=== PATIENT | female | born 1965 | race Caucasian/White ===

== ENCOUNTER 2021-07-24 08:43 | Emergency (ER) | payer OTHER, SELFPAY ==
[2021-07-24] VITALS (8 sets, daily range): BP systolic 131–176; BP diastolic 66–97; PULSE 60–85; RESP 17–18; TEMP 36.8; O2SAT 97–100; BMI 38.6
--- NOTE | 2021-07-24 09:02 | XR_ITS ---
FINAL REPORT CLINICAL HISTORY: pain FINDINGS: Three views of the right knee reveal no evidence of fracture or dislocation. The bony alignment is normal. There are moderate degenerative changes. A small joint effusion is present. There are presumed loose bodies posteriorly and in the lateral compartment. IMPRESSION: Moderate degenerative changes with loose bodies and a small joint effusion. Reviewed, Interpreted and Dictated by Alec Vanegas III, MD Transcribed by To Ruiz Authenticated by Alec Vanegas III, MD on 07/24/2021 10:53:[address] [facility]
--- NOTE | 2021-07-24 09:02 | CT_ITS ---
FINAL REPORT CLINICAL HISTORY: back pain with right sided sciatica, no injury FINDINGS: Axial imaging of the lumbar spine was obtained without contrast. Sagittal and coronal reformatted images were also obtained and reviewed.This study was performed with techniques to keep radiation doses as low as reasonably achievable (ALARA). Individualized dose reduction techniques using automated exposure control or adjustment of mA and/or kV according to the patient's size were employed. There is no fracture. There are mild degenerative changes. There is mild anterolisthesis of L3 on L4. L1-2: There is an annular bulge, facet arthropathy and vertebral osteophytes. There is moderate right and mild left neural foraminal narrowing. L2-3: There is an annular bulge, facet arthropathy and vertebral osteophytes. There is severe right and moderate left neural foraminal narrowing. L3-4: There is an annular bulge and facet arthropathy. There is severe right and moderate left neural foraminal narrowing. There is mild central canal stenosis with an AP thecal sac diameter of 9 mm. L4-5: There is an annular bulge, facet arthropathy and vertebral osteophytes. There is severe bilateral neural foraminal narrowing. L5-S1: There is an annular bulge and facet arthropathy. There is mild bilateral neural foraminal narrowing. IMPRESSION: Multilevel degenerative change with areas of neural foraminal narrowing and central canal stenosis as described. Reviewed, Interpreted and Dictated by Alec Vanegas III, MD Transcribed by To Ruiz Authenticated by Alec Vanegas III, MD on 07/24/2021 10:53:35 AM [facility]
--- NOTE | 2021-07-24 09:04 | [facility].EDGENADL ---
ED Disposition Clinical Impression: Sciatic leg pain Disposition: Home, Self-Care Condition on Discharge: Good Instructions: DI for Sciatica Prescriptions: Ibuprofen [Ibuprofen 800mg Tablet] 800 mg PO TIDP PRN #20 tab PRN Reason: Moderate Pain Transmission Status: Pending to [id number] methocarbamoL [Methocarbamol] 750 mg PO QID 7 Days #28 tab Transmission Status: Pending to [id number] Referrals: Lisa Kramer [Primary Care Provider] - Jayjay Carrizales MD [Staff Physician] - - Critical Care Critical Care Time: No Attestation: On , the high probability of a clinically significant, sudden or life threatening deterioration of the following system(s) required my full and direct attention, intervention and personal management. The time I documented below is in addition to time spent performing reported procedures but includes the following listed in this critical care notation. Medical Decision Making - Medical Records Medical records reviewed: Yes: I reviewed the patient's medical records. - Jeff Inquiry Pt receiving controlled substance: No Vital Signs: 07/24/21 08:50 07/24/21 09:26 07/24/21 09:30 Temperature 98.2 F Temperature Source Oral Pulse Rate 68 70 70 Pulse Rate [Left Radial] 68 Respiratory Rate 18 18 18 Blood Pressure 147/68 H 155/67 H 176/97 H Blood Pressure [Right Arm] 147/66 H Blood Pressure Mean 115 101 122 Blood Pressure Mean [Right Arm] 93 Blood Pressure Source [Right Arm] Automatic Cuff Blood Pressure Position [Right Arm] Sitting 02 Sat by Pulse Oximetry 97 98 98 Oxygen Delivery Method Room Air 07/24/21 09:32 07/24/21 10:00 07/24/21 10:30 Temperature Temperature Source Pulse Rate 62 63 60 Pulse Rate [Left Radial] Respiratory Rate 18 18 18 Blood Pressure 176/97 H 143/79 H 135/70 Blood Pressure [Right Arm] Blood Pressure Mean 113 100 91 Blood Pressure Mean [Right Arm] Blood Pressure Source [Right Arm] Blood Pressure Position [Right Arm] 02 Sat by Pulse Oximetry 98 98 99 Oxygen Delivery Method Orders (Tests/Meds): ED MEDICATIONS Discontinued Medications Generic Name Dose Route Start Last Admin Trade Name Freq PRN Reason Stop Dose Admin Ibuprofen 800 mg 07/24/21 09:02 07/24/21 09:07 Ibuprofen 400 Mg Tablet PO 07/24/21 09:03 800 mg ONCE ONE Administration Methocarbamol 1,000 mg 07/24/21 09:02 07/24/21 09:07 Methocarbamol 500mg Tablet PO 07/24/21 09:03 1,000 mg ONCE STA Administration - Radiology Data #1 Image(s): Knee Image Reviewed: Yes I reviewed the patient's radiology results, Yes I reviewed the patient's radiology image, Yes I have reviewed radiologist's interpretation IMPRESSION: Moderate degenerative changes with loose bodies and a small joint effusion. - CT Data CT Scan: L-Spine Time Received: 11:[address] Reviewed: Yes: I have reviewed the patient's CT results, I have viewed the radiologist's interpretation Findings Narrative: IMPRESSION: Multilevel degenerative change with areas of neural foraminal narrowing and central canal stenosis as described. - Reevaluation(s) Time: 11:07 Reevaluation #1: On reevaluation, patient is feeling better. She does have some significant degenerative changes of the lumbar spine as well as the knee. I do believe she would benefit follow-up with orthopedic surgery. Patient discharged with short course analgesics. Needs to follow-up with orthopedics. Given strict return precautions. Verbalized understanding. Medical Decision Narrative: 55-year-old female presenting with some low back pain and knee pain. I do believe the patient's symptoms are more consistent with sciatica. There is no evidence of compartment syndrome or compression. Work-up initiated. General Adult HPI - General Chief complaint: PAIN Stated complaint: right leg/knee pain, difficulty walking Time Seen by Provider: 07/24/21 09:00 Mode
== END 2021-07-24 11:20 | disposition home or self-care (01) ==
PROVIDERS: Emergency Provider Emergency Medicine; PCP Nurse Practitioner Family
DX: M54.41 Lumbago with sciatica, right side (principal)
CPT/HCPCS: 72131; 73562; 99282